=== PATIENT | female | born 1990 | race Asian ===

== ENCOUNTER 2017-04-01 23:32 | Emergency (ER) | payer MEDICAID ==
[~2017-04-01] VITALS: Ht 154.9 cm; Wt 48.4 kg
[2017-04-01 23:42] VITALS: BP 114/73
[2017-04-02] MEDS ORDERED: SODIUM CHLORIDE FLUSH 10ML SYR IVF ONE (01:30)
[2017-04-02] MEDS ORDERED: SODIUM CHLORIDE 0.9% 1,000ML IVBOLUS ONE (01:30)
[2017-04-02 01:35] LABS: ASPARTATE AMINO TRANSFERASE 13 U/L (15-37); BLOOD UREA NITROGEN 11 mg/dL (7-18)
[2017-04-02] MEDS ORDERED: BIRTH CONTROL (01:36)
[2017-04-02] MEDS ORDERED: SULFAMETH./TRIMETHOPRIM DS 800MG/160MG TABLET ONE (02:59)
[2017-04-02] MEDS ORDERED: LOPERAMIDE 2 MG CAPSULE PO ONE (03:00)
[2017-04-02] MEDS ORDERED: SULFAMETH./TRIMETHOPRIM DS 800MG/160MG TABLET PO ONE (03:00)
[2017-04-02] MEDS ORDERED: LOPERAMIDE 2 MG CAPSULE ONE (03:02)
== END 2017-04-02 03:49 | disposition home or self-care (01) ==
LOC: ED 04-02 01:29
DX: A04.9 Bacterial intestinal infection, unspecified (principal); E86.0 Dehydration; E87.6 Hypokalemia
CPT/HCPCS: 36415; 80053; 85025; 96360; 96361; 99285; J7030